=== PATIENT | female | born 2000 | race Caucasian/White ===

== ENCOUNTER 2019-09-26 08:04 | Day surgery (SDC) | payer OTHER ==
[2019-09-25 14:29] VITALS: BMI 21.6
[2019-09-26] MEDS ORDERED: Lidocaine 1% w/Epinephrine 1:100K 20 ML VIAL ONE (09:49)
[2019-09-26] MEDS ORDERED: AFRIN NASAL MIST 15 ML BOT ONE ×2 (09:49→09:52)
[2019-09-26] MEDS ORDERED: Bacitracin Zinc Ointment 30 gm TUBE ONE (09:49)
[2019-09-26] MEDS ORDERED: Fentanyl 100 MCG/2 ML VIAL ONE ×2 (09:54→11:59)
[2019-09-26 09:57] LABS: BHCG - Serum Negative (NEGATIVE); Pregs Control Background? CLEAR/WHITE (CLR/WHITE); Pregs Control Bar Appear? YES (CONTROL BAR)
[2019-09-26] MEDS ORDERED: Midazolam HCl 2 mg/2 ml Vial ONE (10:00)
[2019-09-26] MEDS ORDERED: PROPOFOL 200 MG/20 ML VIAL ONE (11:06)
[2019-09-26] MEDS ORDERED: Dexamethasone 20 MG/5 ML VIAL ONE (11:06)
[2019-09-26] MEDS ORDERED: Lidocaine 1% PF 5 ML VIAL ONE (11:06)
[2019-09-26] MEDS ORDERED: Ondansetron PF 4 MG/2 ML Vial ONE (11:06)
[2019-09-26] MEDS ORDERED: Rocuronium Bromide 10 MG/ML (10ML VIAL) ONE (11:06)
[2019-09-26] MEDS ORDERED: Succinylcholine Chloride 20 MG/ML 10 ml SYRINGE FS ONE (11:06)
[2019-09-26] MEDS ORDERED: Hydrocodone-Acetamin 15 ML UDCUP ONE (13:35)
--- NOTE | 2019-09-27 10:17 | OP ---
DATE OF PROCEDURE: 09/26/2019 PREOPERATIVE DIAGNOSES: 1. Chronic rhinosinusitis. 2. Acquired nasal deformity. 3. Nasal septal deviation. 4. Bilateral inferior turbinate hypertrophy. 5. Nasal obstruction. POSTOPERATIVE DIAGNOSES: 1. Chronic rhinosinusitis. 2. Acquired nasal deformity. 3. Nasal septal deviation. 4. Bilateral inferior turbinate hypertrophy. 5. Nasal obstruction. PROCEDURES PERFORMED: 1. Bilateral endoscopic sinus surgery, total ethmoidectomies with removal of tissue, including sphenoidotomies. 2. Bilateral endoscopic sinus surgery, frontal sinusotomies. 3. Bilateral endoscopic sinus surgery, maxillary antrostomies. 4. Open septorhinoplasty. 5. Bilateral inferior turbinate submucosal resection. ESTIMATED BLOOD LOSS: 20 mL. COMPLICATIONS: None. ANESTHESIA: GETA. DESCRIPTION OF PROCEDURE: Patient was taken to the operating room and placed supine on the operating table. General endotracheal anesthesia was obtained by the Anesthesia staff. Following this, 1% lidocaine with 1:100,000 epinephrine were injected into the middle turbinates and lateral nasal wall bilaterally. Following this, the 0-degree endoscope was used to visualize the middle turbinate and the middle turbinate was medially fractured using a Chama elevator. Following this, the uncinate process was identified and was examined. The uncinate process was noted to be inflamed and laterally displaced bilaterally. Following this, a ball-ended probe was used to anteriorly fracture the uncinate process bilaterally. Following this, the 0-degree microdebrider and the up-biting Blakesley forceps were used to remove the uncinate process bilaterally. Following this, the natural maxillary sinus ostia was identified with the 0-degree endoscope and the ball-ended probe. The natural maxillary ostia were then widened using a 40-degree microdebrider and the straight Blakesley forceps bilaterally. Following this, the ethmoidal bulla was identified bilaterally. A 0-degree microdebrider was used to puncture the ethmoidal bulla on its medial and inferior aspect bilaterally. Following this, the 0-degree microdebrider and the up-biting Blakesley forceps were used to remove the ethmoidal bulla. Following this, the grand lamella was identified posterior to this area and was punctured using the 0-degree microdebrider bilaterally. Following this, the ethmoidal cells were opened from the posterior to the anterior using the 0-degree microdebrider, the 40-degree microdebrider and the up-biting Blakesley forceps bilaterally. Following this, the 45-degree endoscope and the 40-degree microdebrider blade were used to further remove the anterior ethmoidal cells to the level of the frontal sinus recess bilaterally. Following this, the 0-degree endoscope was advanced through the previous ethmoidectomies and the sphenoid sinus anterior wall was identified. Using the microdebrider, a sphenoidotomy was created bilaterally and was then widened bilaterally using the microdebrider in a medial and inferior direction. Necrotic bone and tissue were removed from these areas. Following this, the 45-degree endoscope was used to further identify the frontal recess cells and frontal sinus ostia. Following this, the frontal sinus ostia were then widened using a 40-degree microdebrider blade and up-biting Blakesley forceps bilaterally. Following this, the inferior turbinates were then punctured on the anterior inferior aspect and submucosal resection was performed of the anterior inferior aspect of the inferior turbinates. Following this, inferior turbinates were then laterally fractured. Following this, a transfixation incision was made the nasal septum from the lower lateral cartilages. The patient had a severe dislocation and complete separation of the nasal septal cartilage and the lower lateral cartilages from acquired nasal trauma. The deviated portions of the cartilaginous septum and bony septum were then removed. New cartilaginous struts were replaced for the caudal strut and monocryl stitches were used to secure the new caudal strut between the lower lateral cartilages and reconnecting it to the dorsal strut, which was left intact. Following this, horizontal mattress stitches were placed supporting the graft and the nasal septum to the external skin of this area as well. Following this, the transfixion incision was then closed using a 4-0 chromic gut stitch. Following this, nasal cavity was irrigated. NasoPore packing was placed within the middle meatus. Serrato splints were placed and secured. The patient tolerated the procedure well. Job ID: [id number]
== END 2019-09-26 14:15 | disposition home or self-care (01) ==
LOC: SDC 08:04
PROVIDERS: ATTEND Otolaryngology Plastic Surgery within the Head & Neck
PROC: 09BU8ZZ Excision of Right Ethmoid Sinus, Via Natural or Artificial Opening Endoscopic (ICD-10-PCS; principal; 2019-09-26)
PROC: 099W8ZZ Drainage of Right Sphenoid Sinus, Via Natural or Artificial Opening Endoscopic (ICD-10-PCS; principal; 2019-09-26)
PROC: 09BV8ZZ Excision of Left Ethmoid Sinus, Via Natural or Artificial Opening Endoscopic (ICD-10-PCS; principal; 2019-09-26)
PROC: 099R8ZZ Drainage of Left Maxillary Sinus, Via Natural or Artificial Opening Endoscopic (ICD-10-PCS; principal; 2019-09-26)
PROC: 09BL8ZZ Excision of Nasal Turbinate, Via Natural or Artificial Opening Endoscopic (ICD-10-PCS; principal; 2019-09-26)
PROC: 099Q8ZZ Drainage of Right Maxillary Sinus, Via Natural or Artificial Opening Endoscopic (ICD-10-PCS; principal; 2019-09-26)
PROC: 099X8ZZ Drainage of Left Sphenoid Sinus, Via Natural or Artificial Opening Endoscopic (ICD-10-PCS; principal; 2019-09-26)
PROC: 09BT8ZZ Excision of Left Frontal Sinus, Via Natural or Artificial Opening Endoscopic (ICD-10-PCS; principal; 2019-09-26)
PROC: 09BS8ZZ Excision of Right Frontal Sinus, Via Natural or Artificial Opening Endoscopic (ICD-10-PCS; principal; 2019-09-26)
PROC: 09SM4ZZ Reposition Nasal Septum, Percutaneous Endoscopic Approach (ICD-10-PCS; principal; 2019-09-26)
DX: J32.9 Chronic sinusitis, unspecified (principal); J34.2 Deviated nasal septum; J34.3 Hypertrophy of nasal turbinates; M95.0 Acquired deformity of nose; J34.89 Other specified disorders of nose and nasal sinuses; J30.9 Allergic rhinitis, unspecified; Z88.5 Allergy status to narcotic agent
CPT/HCPCS: 36415; 84703; 85014; J1100; J2001; J2250; J2405; J2704; J3010